=== PATIENT | male | born 1940 | race Caucasian/White ===

== ENCOUNTER → 2016-11-27 | Outpatient (CLI) | payer MEDICARE, OTHER ==
[2016-11-27 10:54] LABS: ABSOLUTE BASOPHILS # (AUTO) 0.1 10^3/uL (0.0-0.2); ABSOLUTE EOSINOPHILS # (AUTO) 0.1 10^3/uL (0.0-0.6); ABSOLUTE LYMPHOCYTES (AUTO) 1.2 10^3/uL (0.5-4.7); ABSOLUTE MONOCYTES (AUTO) 0.6 10^3/uL (0.1-1.4); ABSOLUTE NEUT (AUTO) 4.1 10^3/uL (1.7-8.2); BASOPHILS % (AUTO) 0.9 % (0-2); HEMATOCRIT 39.6 % (37.9-51.0); HEMOGLOBIN 13.6 g/dL (13.5-17.0); HGB HCT DIFFERENCE 1.2; LYMPHOCYTES % (AUTO) 19.9 % (13-45); MEAN CORPUSCULAR HEMOGLOBIN 33.2 pg (27.0-33.4); MEAN CORPUSCULAR HGB CONC 34.4 g/dL (32.0-36.0); MEAN CORPUSCULAR VOLUME 97 fl (80-97); MONOCYTES % (AUTO) 9.9 % (3-13); RED CELL DISTRIBUTION WIDTH 12.9 % (11.5-14.0); SEGMENTED NEUTROPHILS % (AUTO) 67.3 % (42-78); WHITE BLOOD COUNT 6.1 10^3/uL (4.0-10.5)
[2016-11-27 11:22] LABS: ALANINE AMINOTRANSFERASE 34 U/L (21-72); ALBUMIN 4.2 g/dL (3.5-5.0); ALKALINE PHOSPHATASE 60 U/L (38-126); ANION GAP 10 (5-19); ASPARTATE AMINO TRANSFERASE 27 U/L (17-59); BILIRUBIN,DIRECT 0.1 mg/dL (0.0-0.4); BILIRUBIN,TOTAL 0.8 mg/dL (0.2-1.3); BLOOD UREA NITROGEN 22 mg/dL (7-20); CALCIUM 9.5 mg/dL (8.4-10.2); CARBON DIOXIDE 29 mmol/L (22-30); CHLORIDE 104 mmol/L (98-107); CREATININE RESULT 1.13 mg/dL (0.52-1.25); GLUCOSE 137 mg/dL (75-110); POTASSIUM 5.2 mmol/L (3.6-5.0); SODIUM 143.1 mmol/L (137-145); TOTAL PROTEIN 6.3 g/dL (6.3-8.2)
[2016-11-27 11:24] LABS: C-REACTIVE PROTEIN < 5.0 mg/L (<10.0)
[2016-11-27 11:34] LABS: ERYTHROCYTE SEDIMENTATION RATE 11 mm/hr (0-20)
== END ==
LOC: RAD 10:00
PROVIDERS: ATTEND Nurse Practitioner Family
DX: E11.621 Type 2 diabetes mellitus with foot ulcer (principal)
CPT/HCPCS: 36415; 80053; 85025; 85652; 86140

== ENCOUNTER → 2016-12-10 | Outpatient (CLI) | payer MEDICARE, OTHER ==
--- NOTE | 2016-12-10 15:14 | XCELERA REPORT ---
[address] [address] Lower Extremity Arterial Evaluation Name: NATE HOBSON Age: 76 yrs Gender: Male : 1940 Patient Status: Outpatient Patient Location: Study Date: 12/10/2016 08:06 AM Procedure: A color flow and duplex scan of the lower extremity arteries was performed bilaterally with velocity and waveform anaylsis. Reason For Study: RIGHT FOOT ULCER Ordering Physician: BARRY MCARTHUR Performed By: Jt Gilmore Measurements and Calculations Right Left NEUROLOGY HOSPITALIST PSV 235.7 211.0 cm/sec Prox PFA PSV -213.3 -154.2 cm/sec Prox SFA PSV 137.1 -55.4 cm/sec Mid SFA PSV -137.1 -135.5 cm/sec Dist SFA PSV -104.1 -143.2 cm/sec Dist Pop A PSV 168.9 49.9 cm/sec Prox ADRIÁN PSV 25.1 41.2 cm/sec Mid ADRIÁN PSV 15.3 cm/sec Dist SAND MILL OPERATOR PSV 87.7 cm/sec Dist Linda A PSV 59.4 41.0 cm/sec Tim Pedis PSV -31.0 -66.7 cm/sec Right Side Arterial Evaluation Increased velocity and biphasic waveforms noted from the Common Femoral artery to the Popliteal artery. Monophasic in the Posterior Tibial artery. Occlusion in the Anterior Tibial artery with monophasic reconstitution. 20-49 % stenosis at the inflow With sequential disease. Ankle Brachial index was not obtainable, non compressible. Left Side Arterial Evaluation Increased velocity and biphasic waveforms noted from the Common Femoral artery to the Femoral artery. Monophasic in the Popliteal with fair velocity preservation. No flow in the Posterior Tibial artery. Occlusion in the Anterior Tibial artery with monophasic reconstitution. Left Popliteal to Dorsalis Pedis graft patent but monophasic 20-49 % stenosis at the inflow With sequential disease. Ankle Brachial index was not obtainable, non compressible. Interpretation Summary Severe hemodynamically significant lesions in the right lower extremity only, on duplex imaging, at rest. Severe hemodynamically significant lesions in the left lower extremity only, on duplex imaging, at rest. Patent though monophasic vein graft to the Dorsalis Pedis. : BARRY MCARTHUR > Doc Doyle
== END ==
LOC: SP 07:37
PROVIDERS: ATTEND Preventive Medicine Undersea and Hyperbaric Medicine
DX: L97.512 Non-pressure chronic ulcer of other part of right foot with fat layer exposed (principal)
CPT/HCPCS: 93925

== ENCOUNTER → 2016-12-31 | Outpatient (CLI) | payer MEDICARE, OTHER ==
--- NOTE | 2016-12-31 16:36 | RADIOLOGY REPORT (SQ) ---
EXAM DESCRIPTION: FOOT RIGHT COMPLETE COMPLETED DATE/TIME: 12/31/2016 1:26 pm REASON FOR STUDY: NON-PRS CHRONIC ULCER OTH PRT RIGHT FOOT W FAT LAYER EXPOSED (L97.512) L97.512 NO N-PRS CHRONIC ULCER OTH PRT RIGHT FOOT W FAT LAYER COMPARISON: Right foot films 11/27/2016, 10/28/2013, 05/27/2013 NUMBER OF VIEWS: Three views. TECHNIQUE: AP, lateral and oblique radiographic images acquired of the right foot. LIMITATIONS: None. 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 There is a bunionette deformity at the 5th toe. SOFT TISSUES: Along the plantar aspect of the right foot, a soft tissue ulcer is present containing r adiopaque ointment or debris. Ulcer is at the level of the 1st tarsometatarsal joint. OTHER: No other significant finding. 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 Plantar ulcer. No bony erosions or the demineralization or periostitis worrisome for active osteomyelitis. TECHNICAL DOCUMENTATION: JOB ID: [id number] [employer]- All Rights Reserved
== END ==
LOC: RAD 12:59
PROVIDERS: ATTEND Nurse Practitioner Family
DX: L97.512 Non-pressure chronic ulcer of other part of right foot with fat layer exposed (principal)

== ENCOUNTER → 2017-02-27 | Outpatient (CLI) | payer MEDICARE, OTHER ==
[2017-02-19 12:10] LABS: ANION GAP 7 (5-19); BLOOD UREA NITROGEN 26 mg/dL (7-20); CARBON DIOXIDE 23 mmol/L (22-30); CHLORIDE 107 mmol/L (98-107); CREATININE RESULT 1.52 mg/dL (0.52-1.25); GLUCOSE 133 mg/dL (75-110); POTASSIUM 5.7 mmol/L (3.6-5.0); SODIUM 136.9 mmol/L (137-145)
--- NOTE | 2017-02-27 09:36 | RADIOLOGY REPORT (SQ) ---
EXAM DESCRIPTION: CHEST PA/LAT COMPLETED DATE/TIME: 02/27/2017 9:22 am REASON FOR STUDY: ENCOUNTER FOR PRE PROCEDURAL EXAM COMPARISON: 05/27/2013 EXAM PARAMETERS: NUMBER OF VIEWS: two views TECHNIQUE: Digital Frontal and Lateral radiographic views of the chest acquired. RADIATION DOSE: NA LIMITATIONS: none FINDINGS: LUNGS AND PLEURA: Chronic interstitial changes. Calcified pleural plaque. No effusions. MEDIASTINUM AND HILAR STRUCTURES: No masses or contour abnormalities. HEART AND VASCULAR STRUCTURES: Heart size upper limits of normal, stable. No evidence for failure. BONES: No acute findings. HARDWARE: None in the chest. OTHER: No other significant finding. IMPRESSION: NO ACUTE RADIOGRAPHIC FINDING IN THE CHEST. TECHNICAL DOCUMENTATION: JOB ID: [id number] [employer]- All Rights Reserved
--- NOTE | 2017-02-27 12:25 | RADIOLOGY REPORT (SQ) ---
EXAM DESCRIPTION: MRI RT LOWER EXTREMITY WITHOUT COMPLETED DATE/TIME: 02/27/2017 10:30 am REASON FOR STUDY: NON PRESSURE CHRONIC ULCER RIGHT FOOT L97.514 NON-PRS CHRONIC ULCER OTH PRT RIGHT FOOT W NECROSIS COMPARISON: None. TECHNIQUE: Multiplanar imaging of the right forefoot to include T1 and inversion recovery weighted s equences. Images saved to PACs. CONTRAST TYPE AND DOSE: None. RENAL FUNCTION: Not applicable. LIMITATIONS: None. FINDINGS: BONE MARROW: Abnormal decreased T1 and increased T2 signal in the 1st metatarsal and proxi mal 1st phalanx. SOFT TISSUES: Diffuse swelling. Skin ulcer adjacent to head of 1st metatarsal. OTHER: No other significant finding. IMPRESSION: Osteomyelitis. TECHNICAL DOCUMENTATION: JOB ID: [id number] [employer]- All Rights Reserved
== END ==
LOC: RAD 02-19 07:49
PROVIDERS: ATTEND Physician Assistant Surgical
DX: Z01.818 Encounter for other preprocedural examination (principal); Z01.812 Encounter for preprocedural laboratory examination; L97.514 Non-pressure chronic ulcer of other part of right foot with necrosis of bone; I70.90 Unspecified atherosclerosis; I10 Essential (primary) hypertension
CPT/HCPCS: 36415; 71020; 80048

== ENCOUNTER → 2017-04-10 | Outpatient (CLI) | payer MEDICARE, OTHER ==
[2017-04-10 13:47] LABS: ABSOLUTE BASOPHILS # (AUTO) 0.1 10^3/uL (0.0-0.2); ABSOLUTE EOSINOPHILS # (AUTO) 0.2 10^3/uL (0.0-0.6); ABSOLUTE LYMPHOCYTES (AUTO) 1.7 10^3/uL (0.5-4.7); ABSOLUTE MONOCYTES (AUTO) 0.7 10^3/uL (0.1-1.4); ABSOLUTE NEUT (AUTO) 3.8 10^3/uL (1.7-8.2); BASOPHILS % (AUTO) 0.8 % (0-2); EOSINOPHILS % (AUTO) 3.5 % (0-6); HEMATOCRIT 37.8 % (37.9-51.0); HEMOGLOBIN 12.3 g/dL (13.5-17.0); HGB HCT DIFFERENCE -0.9; LYMPHOCYTES % (AUTO) 25.6 % (13-45); MEAN CORPUSCULAR HEMOGLOBIN 32.4 pg (27.0-33.4); MEAN CORPUSCULAR HGB CONC 32.6 g/dL (32.0-36.0); MEAN CORPUSCULAR VOLUME 99 fl (80-97); MONOCYTES % (AUTO) 10.9 % (3-13); RED BLOOD COUNT 3.81 10^6/uL (4.35-5.55); RED CELL DISTRIBUTION WIDTH 13.7 % (11.5-14.0); SEGMENTED NEUTROPHILS % (AUTO) 59.2 % (42-78); WHITE BLOOD COUNT 6.5 10^3/uL (4.0-10.5)
[2017-04-10 14:06] LABS: ALANINE AMINOTRANSFERASE 35 U/L (21-72); ALKALINE PHOSPHATASE 64 U/L (38-126); ANION GAP 12 (5-19); ASPARTATE AMINO TRANSFERASE 25 U/L (17-59); BILIRUBIN,DIRECT 0.3 mg/dL (0.0-0.4); BILIRUBIN,TOTAL 0.6 mg/dL (0.2-1.3); BLOOD UREA NITROGEN 25 mg/dL (7-20); CALCIUM 9.5 mg/dL (8.4-10.2); CARBON DIOXIDE 26 mmol/L (22-30); CHLORIDE 109 mmol/L (98-107); CREATININE RESULT 1.18 mg/dL (0.52-1.25); GLUCOSE 83 mg/dL (75-110); POTASSIUM 5.4 mmol/L (3.6-5.0); SODIUM 146.6 mmol/L (137-145); TOTAL PROTEIN 5.7 g/dL (6.3-8.2)
--- NOTE | 2017-04-10 14:17 | RADIOLOGY REPORT (SQ) ---
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 TECHNIQUE: AP, lateral and oblique radiographic images acquired of the right foot. LIMITATIONS: None. FINDINGS: MINERALIZATION: Normal. BONES: There is amputation of the 2nd, 3rd, and 4th digits from the level of the distal metatarsals. There appears to be fusion of the 1st metatarsal and 1st proximal phalanx. There is no bone destruc tion to suggest osteomyelitis. JOINTS: No effusions. SOFT TISSUES: No soft tissue swelling. No foreign body. OTHER: No other significant finding. IMPRESSION: Surgical changes. No evidence of osteomyelitis. TECHNICAL DOCUMENTATION: JOB ID: [id number] [employer]- All Rights Reserved
== END ==
LOC: RAD 12:47
PROVIDERS: ATTEND Preventive Medicine Undersea and Hyperbaric Medicine
DX: E11.621 Type 2 diabetes mellitus with foot ulcer (principal); L97.512 Non-pressure chronic ulcer of other part of right foot with fat layer exposed
CPT/HCPCS: 36415; 80053; 85025

== ENCOUNTER → 2017-09-01 | Outpatient (CLI) | payer MEDICARE, OTHER ==
[2017-09-01 15:39] LABS: ABSOLUTE BASOPHILS # (AUTO) 0.1 10^3/uL (0.0-0.2); ABSOLUTE EOSINOPHILS # (AUTO) 0.2 10^3/uL (0.0-0.6); ABSOLUTE LYMPHOCYTES (AUTO) 1.6 10^3/uL (0.5-4.7); ABSOLUTE MONOCYTES (AUTO) 0.7 10^3/uL (0.1-1.4); ABSOLUTE NEUT (AUTO) 4.5 10^3/uL (1.7-8.2); BASOPHILS % (AUTO) 0.8 % (0-2); EOSINOPHILS % (AUTO) 3.1 % (0-6); HEMATOCRIT 36.3 % (37.9-51.0); HEMOGLOBIN 12.4 g/dL (13.5-17.0); LYMPHOCYTES % (AUTO) 22.5 % (13-45); MEAN CORPUSCULAR HEMOGLOBIN 32.6 pg (27.0-33.4); MEAN CORPUSCULAR HGB CONC 34.2 g/dL (32.0-36.0); MEAN CORPUSCULAR VOLUME 95 fl (80-97); MONOCYTES % (AUTO) 9.9 % (3-13); PLATELET COUNT 188 10^3/uL (150-450); RED BLOOD COUNT 3.81 10^6/uL (4.35-5.55); RED CELL DISTRIBUTION WIDTH 13.4 % (11.5-14.0); SEGMENTED NEUTROPHILS % (AUTO) 63.7 % (42-78); TOTAL CELLS COUNTED % (AUTO) 100 %
[2017-09-01 16:00] LABS: ALANINE AMINOTRANSFERASE 32 U/L (21-72); ALBUMIN 3.9 g/dL (3.5-5.0); ALKALINE PHOSPHATASE 68 U/L (38-126); ANION GAP 7 (5-19); ASPARTATE AMINO TRANSFERASE 26 U/L (17-59); BILIRUBIN,DIRECT 0.3 mg/dL (0.0-0.4); BILIRUBIN,TOTAL 0.3 mg/dL (0.2-1.3); BLOOD UREA NITROGEN 25 mg/dL (7-20); CALCIUM 9.3 mg/dL (8.4-10.2); CARBON DIOXIDE 30 mmol/L (22-30); CHLORIDE 107 mmol/L (98-107); GLUCOSE 163 mg/dL (75-110); POTASSIUM 4.7 mmol/L (3.6-5.0); SODIUM 143.9 mmol/L (137-145); TOTAL PROTEIN 5.9 g/dL (6.3-8.2)
[2017-09-01 16:03] LABS: C-REACTIVE PROTEIN < 5.0 mg/L (<10.0)
[2017-09-01 16:22] LABS: ERYTHROCYTE SEDIMENTATION RATE 13 mm/hr (0-20)
--- NOTE | 2017-09-01 16:34 | RADIOLOGY REPORT (SQ) ---
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 NUMBER OF VIEWS: Three views. TECHNIQUE: AP, lateral and oblique radiographic images acquired of the right foot. LIMITATIONS: None. FINDINGS: MINERALIZATION: Normal. BONES: No change in prior amputation of distal right 2nd 3rd and 4th metatarsals and toes. No change in fusion of 1st metatarsophalangeal joint with hallux deformity JOINTS: No effusions. SOFT TISSUES: No soft tissue swelling. No foreign body. OTHER: Bandage on plantar aspect of right foot adjacent to 1st metatarsal. Vascular calcification no brooks IMPRESSION: No significant interval change. TECHNICAL DOCUMENTATION: JOB ID: [id number] [employer]- All Rights Reserved
== END ==
LOC: WC 14:48
PROVIDERS: ATTEND Preventive Medicine Undersea and Hyperbaric Medicine
DX: E11.621 Type 2 diabetes mellitus with foot ulcer (principal); L97.512 Non-pressure chronic ulcer of other part of right foot with fat layer exposed
CPT/HCPCS: 36415; 80053; 83036; 85025; 85652; 86140

== ENCOUNTER 2018-01-29 13:12 | Inpatient (IN) | payer MEDICARE, OTHER ==
[2018-01-29] MEDS ORDERED: ASPIRIN 81 MG TABLET, CHEWABLE PO ONE (13:27)
[2018-01-29] MEDS ORDERED: ADENOSINE INJ/PF 6 MG/2 ML SDV IV ONE ×2 (13:30→13:35)
[2018-01-29] MEDS ORDERED: RINGERS SOLUTION,LACTATED 1,000 ML IV ONE (13:30)
[2018-01-29 13:47] LABS: ABSOLUTE LYMPHOCYTES (AUTO) 0.7 10^3/uL (0.5-4.7); ABSOLUTE MONOCYTES (AUTO) 0.5 10^3/uL (0.1-1.4); ABSOLUTE NEUT (AUTO) 7.2 10^3/uL (1.7-8.2); BASOPHILS % (AUTO) 0.4 % (0-2); HEMATOCRIT 49.4 % (37.9-51.0); HEMOGLOBIN 16.7 g/dL (13.5-17.0); LYMPHOCYTES % (AUTO) 8.7 % (13-45); MEAN CORPUSCULAR HEMOGLOBIN 32.2 pg (27.0-33.4); MEAN CORPUSCULAR HGB CONC 33.7 g/dL (32.0-36.0); MEAN CORPUSCULAR VOLUME 95 fl (80-97); MONOCYTES % (AUTO) 5.6 % (3-13); PLATELET COUNT 207 10^3/uL (150-450); RED BLOOD COUNT 5.18 10^6/uL (4.35-5.55); RED CELL DISTRIBUTION WIDTH 13.7 % (11.5-14.0); SEGMENTED NEUTROPHILS % (AUTO) 85.3 % (42-78); TOTAL CELLS COUNTED % (AUTO) 100 %; WHITE BLOOD COUNT 8.4 10^3/uL (4.0-10.5)
--- NOTE | 2018-01-29 14:06 | ER Document Report ---
ED General - General Mode of Arrival: Ambulatory Information source: Patient TRAVEL OUTSIDE OF THE [place] IN LAST 30 DAYS: No <PADMINI LOPEZ - Last Filed: 01/29/18 14:30> <ROCKY HOUSE - Last Filed: 02/01/18 15:22> - General Stated Complaint: BLOOD SUGAR PROBLEMS Time Seen by Provider: 01/29/18 13:26 Notes: Patient is a 77 year old male that presents to the emergency department today with complaints of being found unresponsive by the . According to EMS when they arrived the patient had a BGL of 40. When given glucose the patient aroused and was nearly going to refuse transport however the patient's oxygen saturation was found to be in the upper 80s. The patient then began to develop a heart racing sensation. (PADMINI LOPEZ) - Related Data Allergies/Adverse Reactions: No Known Allergies Allergy (Unverified 12/14/10 12:52) Past Medical History - General Information source: Patient, [facility] Records - Social History Smoking Status: Never Smoker Cigarette use (# per day): No Frequency of alcohol use: None Drug Abuse: None Lives with: Family Family History: Reviewed & Not Pertinent - Past Medical History Cardiac Medical History: Reports: Hx Hypertension - micardis norvasc clonidine metoprolol Pulmonary Medical History: Musculoskeltal Medical History: Surgical Hx: Negative <PADMINI LOPEZ - Last Filed: 01/29/18 14:30> Review of Systems - Review of Systems Constitutional: See HPI, Other - unresponsive intially per EMS with BGL of 40 EENT: No symptoms reported Cardiovascular: See HPI, Heart racing. denies: Chest pain Respiratory: denies: Short of breath Gastrointestinal: No symptoms reported Genitourinary: No symptoms reported Male Genitourinary: No symptoms reported Musculoskeletal: No symptoms reported Skin: No symptoms reported Hematologic/Lymphatic: No symptoms reported Neurological/Psychological: No symptoms reported -: Yes All other systems reviewed and negative <PADMINI LOPEZ - Last Filed: 01/29/18 14:30> Physical Exam <PADMINI LOPEZ - Last Filed: 01/29/18 14:30> <ROCK[employer] HOUSE - Last Filed: 02/01/18 15:22> - Vital signs Vitals: Temp Resp Pulse Ox 98.8 F 27 H 92 01/29/18 13:29 01/29/18 13:29 01/29/18 13:29 - Notes Notes: Physical Exam: General: Alert. HEENT: Normocephalic. Atraumatic. PERRL. Extraocular movements intact. Oropharynx clear. Neck: Supple. C-collar removed, Non-tender. Respiratory: No respiratory distress. Clear and equal breath sounds bilaterally. Cardiovascular: Tachycardic, regular rhythm. Abdominal: Normal Inspection. Non-tender. No distension. Normal Bowel Sounds. Back: Non-tender. No deformity or step off. Extremities: Moves all four extremities. Upper extremities: Normal inspection. Normal ROM. Lower extremities: Stasis dermatitis to bilateral lower extremities, 1+ pitting edema bilaterally. Normal ROM. Neurological: Normal cognition. AAOx4. Normal speech. Psychological: Normal affect. Normal Mood. Skin: Warm. Dry. Ecchymosis over left chest and lower abdomen. Lower abdomen is from insulin injections and left chest is from running into a tree branch when cutting the lawn. (PADMINI LOPEZ) Course - Laboratory Result Diagrams: 01/29/18 13:29 01/29/18 13:29 <PADMINI LOPEZ - Last Filed: 01/29/18 14:30> - Laboratory Result Diagrams: 01/29/18 13:29 01/29/18 13:29 <ROCK[employer] HOUSE - Last Filed: 02/01/18 15:22> - Re-evaluation Re-evalutation: 01/29/18 15:09 Patient presents from EMS due to hypoglycemic episode found on the floor in his house blood glucose of 40. 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 Prior to leaving they noticed that the patient had heart rate in the 150s 160s was brought to the emergency department. In the emergency department patient's hypoxic 8991% with nonrebreather. He is alert and oriented 3 and denies any chest pain or short of breath. His at bedside states he has not had any recent fevers or illnesses. He was noted to be in supraventricular tachycardia which adenosine was administered. He did not respond to this and while nursing staff retrieving 12 mg patient spontaneously converted to sinus tachycardia at a rate approximately 110 115 bpm. He remained asymptomatic and his blood pressure remained stable during this time. Chest x-ray shows concern for possible right lower lobe infiltrate. Working through this point was patient aspirated after losing consciousness from hypoglycemic episode. Awaiting reading on CTA chest. Initial lab work shows mildly increased lactic acid no fevers patient has other labs are trending within his normal limits. 01/29/18 15:27 Upon reevaluation patient heart rate approximately 100 and distress on 15 L nonrebreather saturating at 98%. Was placed on 4 L nasal cannula maintaining oxygenation 94-96% this time will continue to monitor 01/29/18 15:[address] Monreal who will admit patient for further monitoring and oxygen supplementation. (ROCKY HOUSE) - Vital Signs Vital signs: Temp Pulse Resp BP Pulse Ox 97.9 F 132 H 18 156/57 H 94 01/30/18 12:22 01/30/18 12:22 01/30/18 12:22 01/30/18 12:22 01/30/18 12:22 - Laboratory Laboratory results interpreted by me: 01/29/18 01/29/18 01/29/18 13:29 13:29 13:29 Seg Neutrophils % 85.3 H Lymphocytes % 8.7 L Sodium 146.7 H Chloride 112 H Carbon Dioxide 20 L BUN 35 H Creatinine 1.34 H Est GFR (Non-Af Amer) 52 L Lactic Acid NT-Pro-B Natriuret Pep 1390 H 01/29/18 13:29 Seg Neutrophils % Lymphocytes % Sodium Chloride Carbon Dioxide BUN Creatinine Est GFR (Non-Af Amer) Lactic Acid 3.4 H NT-Pro-B Natriuret Pep - EKG Interpretation by Me Additional EKG results interpreted by me: 13:27 Rate 157, SVT, normal axis, non specific ST-T wave abnormalities 13:57 Rate 112, Sinus tachycardia, normal axis, non-specific ST-T wave abnormalities 01/29/18 15:44 15:41 Rate 103, Sinus tachycardia, normal axis, non-specific ST-T wave abnormalities ( ROCKY HOUSE) Discharge <PADMINI LOPEZ - Last Filed: 01/29/18 14:30> - Discharge Admitting Provider: Jocelin Unit Admitted: Telemetry <ROCKY HOUSE - Last Filed: 02/01/18 15:22> - Discharge Clinical Impression: Hypoxemia, Pneumonitis Aspiration into respiratory tract Qualifiers: Encounter type: initial encounter Qualified Code(s): T17.908A - Unspecified foreign body in respiratory tract, part unspecified causing other injury, initial encounter Condition: Good Disposition: ADMITTED INPATIENT Scribe Attestation: 02/01/18 15:22 I personally performed the services described documentation, reviewed and edited the documentation which was dictated to describe my presence, and it accurately records my words and actions. (ROCKY HOUSE) Scribe Documentation - Scribe Written by Scribe:: Bri Posey, 01/29/2018 1438 acting as scribe for :: Carlos <PADMINI LOPEZ - Last Filed: 01/29/18 14:30>
[2018-01-29 14:11] LABS: ALANINE AMINOTRANSFERASE 32 U/L (21-72); ALBUMIN 4.6 g/dL (3.5-5.0); ALKALINE PHOSPHATASE 71 U/L (38-126); ANION GAP 15 (5-19); ASPARTATE AMINO TRANSFERASE 29 U/L (17-59); BILIRUBIN,DIRECT 0.4 mg/dL (0.0-0.4); BILIRUBIN,TOTAL 0.8 mg/dL (0.2-1.3); BLOOD UREA NITROGEN 35 mg/dL (7-20); CALCIUM 9.6 mg/dL (8.4-10.2); CARBON DIOXIDE 20 mmol/L (22-30); CHLORIDE 112 mmol/L (98-107); GLUCOSE 93 mg/dL (75-110); POTASSIUM 4.2 mmol/L (3.6-5.0); SODIUM 146.7 mmol/L (137-145); TOTAL PROTEIN 7.2 g/dL (6.3-8.2)
[2018-01-29 14:19] LABS: NT PRO BNP 1390 pg/mL (<450)
[2018-01-29 14:41] LABS: TROPONIN I < 0.012 ng/mL
--- NOTE | 2018-01-29 14:51 | RADIOLOGY REPORT (SQ) ---
EXAM DESCRIPTION: CHEST SINGLE VIEW COMPLETED DATE/TIME: 01/29/2018 2:35 pm REASON FOR STUDY: hypoxia, tachycardia COMPARISON: 02/27/2017. EXAM PARAMETERS: NUMBER OF VIEWS: One view. TECHNIQUE: Single frontal radiographic view of the chest acquired. RADIATION DOSE: NA LIMITATIONS: None. FINDINGS: LUNGS AND PLEURA: Diffuse interstitial prominence. Faint densities in the lower lobes. N o large pleural effusion. No pneumothorax. MEDIASTINUM AND HILAR STRUCTURES: No masses. Contour normal. HEART AND VASCULAR STRUCTURES: Heart normal in size. Normal vasculature. BONES: No acute findings. HARDWARE: None in the chest. OTHER: No other significant finding. IMPRESSION: DIFFUSE INTERSTITIAL PROMINENCE, PROBABLY CHRONIC SCARRING ALTHOUGH THERE MAY BE A COMPO NENT OF INTERSTITIAL EDEMA. POSSIBLE DEVELOPING ATELECTASIS/INFILTRATE. TECHNICAL DOCUMENTATION: JOB ID: [id number] [employer]- All Rights Reserved Reading location - IP/workstation name: [email or web address]
--- NOTE | 2018-01-29 15:13 | RADIOLOGY REPORT (SQ) ---
EXAM DESCRIPTION: CT HEAD WITHOUT COMPLETED DATE/TIME: 01/29/2018 2:51 pm REASON FOR STUDY: fall, unresponsive COMPARISON: 12/25/2009 TECHNIQUE: Axial images acquired through the brain without intravenous contrast. Images reviewed wi th bone, brain and subdural windows. Additional sagittal and coronal reconstructions were generated. Images stored on PACS. All CT scanners at this facility use dose modulation, iterative reconstruction, and/or weight based d osing when appropriate to reduce radiation dose to as low as reasonably achievable (ALARA). [facility]: Dose Right [facility]: CareDose [facility]: Dose Right [facility]: Teradose 4D [facility]: Smart NowSpots RADIATION DOSE: CT Rad equipment meets quality standard of care and radiation dose reduction techniq ues were employed. CTDIvol: 53.2 mGy. DLP: 1124 mGy-cm. mGy. LIMITATIONS: None. FINDINGS: VENTRICLES: Prominent ventricles secondary to involutional atrophy. CEREBRUM: Cortical atrophy is present. No masses. No hemorrhage. No midline shift. No evidence fo r acute infarction. Areas of low density in the white matter most likely chronic small vessel ischemi c changes. CEREBELLUM: No masses. No hemorrhage. No alteration of density. No evidence for acute infarction. EXTRAAXIAL SPACES: No fluid collections. No masses. ORBITS AND GLOBE: No intra- or extraconal masses. Normal contour of globe without masses. CALVARIUM: No fracture. PARANASAL SINUSES: No fluid or mucosal thickening. SOFT TISSUES: No mass or hematoma. OTHER: No other significant finding. IMPRESSION: MICROVASCULAR ISCHEMIA AND GENERALIZED ATROPHY. NO ACUTE IMAGING FINDINGS IN THE BRAIN EVIDENCE OF ACUTE STROKE: NO. COMMENT: Quality ID # [id number]: Final reports with documentation of one or more dose reduction techniques (e.g., Automated exposure control, adjustment of the mA and/or kV according to patient size, use of iterative reconstruction technique) TECHNICAL DOCUMENTATION: JOB ID: [id number] [employer]- All Rights Reserved Reading location - IP/workstation name: [email or web address]
--- NOTE | 2018-01-29 15:18 | RADIOLOGY REPORT (SQ) ---
EXAM DESCRIPTION: CTA CHEST COMPLETED DATE/TIME: 01/29/2018 2:51 pm REASON FOR STUDY: hypoxia, tachycardia COMPARISON: Chest films 01/29/2018, 02/27/2017, 12/25/2009 TECHNIQUE: CT scan of the chest performed using helical scanning technique with dynamic intravenous contrast injection. Images reviewed with lung, soft tissue and bone windows. Reconstructed coronal and sagittal MPR images reviewed. Additional 3 dimensional post-processing performed to develop Maximal Intensity Projection images (RI P). All images stored on PACS. All CT scanners at this facility use dose modulation, iterative reconstruction, and/or weight based d osing when appropriate to reduce radiation dose to as low as reasonably achievable (ALARA). [facility]: Dose Right [facility]: CareDose [facility]: Dose Right [facility]: Teradose 4D [facility]: [employer] CONTRAST TYPE AND DOSE: contrast/concentration: Isovue 370.00 mg/ml; Total Contrast Delivered: 76.0 ml; Total Saline Delivered: 80.0 ml Contrast bolus optimized for the pulmonary arteries. Limited diagnostic quality bolus for the thorac ic aorta. RENAL FUNCTION: Creatinine 1.3 RADIATION DOSE: CT Rad equipment meets quality standard of care and radiation dose reduction techniq ues were employed. CTDIvol: 26.4 - 29.8 mGy. DLP: 1200 mGy-cm. . LIMITATIONS: None. FINDINGS: LUNGS AND PLEURA: Bilateral upper lobes demonstrate patchy ground-glass opacity with thick ened interlobular septa worrisome for pulmonary edema. There is more dense consolidation in the bila teral lower lobes, worrisome for pneumonia. No pleural effusions. No pneumothorax. Airways are patent. AORTA AND GREAT VESSELS: No aneurysm. No gross thoracic aortic dissection. . HEART: No pericardial effusion. Heavy coronary artery calcifications. PULMONARY ARTERIES: No emboli visualized in the main pulmonary arteries or the segmental branches. HILAR AND MEDIASTINAL STRUCTURES: No identified masses or abnormal nodes. HARDWARE: None in the chest. UPPER ABDOMEN: Multiple stones in the gallbladder without gallbladder wall thickening or pericholecys tic fluid. THYROID AND OTHER SOFT TISSUES: No masses. No adenopathy. BONES: Old sternal fracture. Mid thoracic compression deformities, chronic in appearance. 3D MIPS: Confirm above findings. OTHER: No other significant finding. IMPRESSION: No CT angio evidence of acute pulmonary emboli. Upper lobe ground-glass opacity with thickened interlobular septa likely alveolar and interstitial ed joshua. Bilateral lower lobe dense consolidation worrisome for pneumonia. COMMENT: Quality ID # [id number]: Final reports with documentation of one or more dose reduction techniques (e.g., Automated exposure control, adjustment of the mA and/or kV according to patient size, use of iterative reconstruction technique) TECHNICAL DOCUMENTATION: JOB ID: [id number] [employer]- All Rights Reserved Reading location - IP/workstation name: [email or web address]
[2018-01-29] MEDS ORDERED: DEXTROSE 40% GEL 15 GM TUBE PO PRN ×2 (16:17)
[2018-01-29] MEDS ORDERED: DEXTROSE 50%-WATER 25 GM/50 ML DISP.SYRIN IV PRN ×2 (16:17)
[2018-01-29] MEDS ORDERED: GLUCAGON,HUMAN RECOMB 1 MG INJ IM PRN (16:17)
--- NOTE | 2018-01-29 16:32 | PDOC H&P ---
History of Present Illness Admission Date/PCP: 01/29/18 16:08 BARRY MCARTHUR DPM History of Present Illness: NATE HOBSON is a 77 year old male who took his insulin this morning but did not make it to his breakfast and time and so he fell out on the floor. It is estimated he was down for about an hour and a half. His said she found him around 845 this morning and called EMS. She said she tried to give him some glucose. EMS got there and checked his sugar and it was 40. They gave him some D10 and were going to leave whenever they saw his pulse was around 160. While checking the rest of his vital signs of they saw that his SPO2 was also low. He was brought into the ER and he was given some adenosine. His heart rate did not respond. They were going to give him a second larger dose of adenosine when his rate suddenly came down to around 100. CTA of his chest was negative for clot, but he had some patchy opacities forming. He denied any chest pain or shortness of breath. He denied palpitations. He said he felt fine right up to the point he passed out. He had not been sick or feeling different prior to that. He now says he is feeling fine. He has not had any of his medications this morning, including his clonidine or his metoprolol. Past Medical History Cardiac Medical History: Reports: Hypertension - micardis norvasc clonidine metoprolol Denies: Myocardial Infarction Pulmonary Medical History: Denies: Asthma Neurological Medical History: Denies: Seizures Endocrine Medical History: Reports: Diabetes Mellitus Type 2 GI Medical History: Denies: Hepatitis, Hiatal Hernia Musculoskeltal Medical History: Hematology: Denies: Anemia, Sickle Cell Disease Past Surgical History Past Surgical History: Reports: Orthopedic Surgery - R toe amputation, Vascular Surgery - Had a stent placed in the left lower extremity Denies: Pacemaker Social History Information Source: Patient Lives with: Family Smoking Status: Never Smoker Family History Family History: Reviewed & Not Pertinent Parental Family History Reviewed: No - Noncontributory Children Family History Reviewed: No - Noncontributory Sibling(s) Family History Reviewed.: No - Noncontributory Medication/Allergy Allergies/Adverse Reactions: No Known Allergies Allergy (Unverified 12/14/10 12:52) Review of Systems All systems: reviewed and no additional remarkable complaints except as stated - 10 point review of systems was conducted with the patient was negative except as noted above in the HPI Physical Exam Vital Signs: Temp Pulse Resp BP Pulse Ox 98.8 F 29 H 178/164 H 93 01/29/18 13:29 01/29/18 15:31 01/29/18 15:31 01/29/18 15:31 General appearance: PRESENT: no acute distress, disheveled, well-developed, well -nourished Head exam: PRESENT: atraumatic, normocephalic Eye exam: PRESENT: conjunctiva pink, EOMI, PERRLA Ear exam: PRESENT: normal external ear exam Mouth exam: PRESENT: moist, neck supple, tongue midline Throat exam: ABSENT: post pharyngeal erythema, tonsillar erythema, tonsillar exudate, tonsillogmegaly Neck exam: PRESENT: full ROM. ABSENT: carotid bruit, JVD, lymphadenopathy, thyromegaly Respiratory exam: PRESENT: clear to auscultation paty. ABSENT: rales, rhonchi, wheezes Cardiovascular exam: PRESENT: RRR. ABSENT: diastolic murmur, rubs, systolic murmur Pulses: PRESENT: normal carotid pulses, normal radial pulses Vascular exam: PRESENT: normal capillary refill GI/Abdominal exam: PRESENT: normal bowel sounds, soft. ABSENT: distended, guarding, mass, organolmegaly, rebound, tenderness Rectal exam: PRESENT: deferred Extremities exam: PRESENT: other - He has had the 3 middle toes on the right foot removed surgically. Evidence of long-standing chronic venous insufficiency of lower extremities bilaterally.. ABSENT: pedal edema Musculoskeletal exam: PRESENT: normal inspection. ABSENT: deformity Neurological exam: PRESENT: alert, awake, oriented to person, oriented to place , oriented to time, CN II-XII grossly intact Skin exam: PRESENT: dry, warm Results Laboratory Results: Reviewed Impressions: Chest X-Ray 01/29/18 13:27 IMPRESSION: DIFFUSE INTERSTITIAL PROMINENCE, PROBABLY CHRONIC SCARRING ALTHOUGH THERE MAY BE A COMPONENT OF INTERSTITIAL EDEMA. POSSIBLE DEVELOPING ATELECTASIS/INFILTRATE. Chest/Abdomen CTA 01/29/18 13:28 IMPRESSION: No CT angio evidence of acute pulmonary emboli. Upper lobe ground-glass opacity with thickened interlobular septa likely alveolar and interstitial edema. Bilateral lower lobe dense consolidation worrisome for pneumonia. Head CT 01/29/18 13:28 IMPRESSION: MICROVASCULAR ISCHEMIA AND GENERALIZED ATROPHY. NO ACUTE IMAGING FINDINGS IN THE BRAIN EVIDENCE OF ACUTE STROKE: NO. Assessment & Plan - Diagnosis (1) Hypoglycemia due to insulin Is this a current diagnosis for this admission?: Yes Plan: Going to feed him and put him just on a sliding scale for right now. If his sugars remain elevated will put him back on some longer acting insulin. (2) SVT (supraventricular tachycardia) Is this a current diagnosis for this admission?: Yes Plan: Resolved. Due in part due to his acute metabolic issues, also partly due to the fact that he did not get his clonidine or his metoprolol this morning. Despite the recent warnings about being on both these at the same time, he has been on them for a while, I think missing them as had an effect on him manifested in some of the problem being seen this afternoon. I will give him a small dose of each medicine now and get him back on his usual schedule this evening. (3) Hypoxemia Is this a current diagnosis for this admission?: Yes Plan: This could have been triggered by development of some pulmonary edema, possibly due to aspiration or also possibly from an effective circulation due to SVT. Now we have seemingly got him settled down somewhat, I am going to watch him for now and wean his oxygen as tolerated. If he shows signs of infection we will empirically start him on some antibiotics. - Time Time Spent: 50 to 70 Minutes Medications reviewed and adjusted accordingly: Yes
[2018-01-29] MEDS ORDERED: METOPROLOL TARTRATE 25 MG TABLET PO ONE (17:15)
[2018-01-29] MEDS ORDERED: CLONIDINE HCL 0.1 MG TABLET PO ONE (17:15)
[2018-01-29] MEDS: INSULIN LISPRO 100 UNIT/ML 3 ML VIAL SUBCUT PRN ×2 (18:04→22:43)
[2018-01-29] MEDS ORDERED: CLONIDINE HCL 0.1 MG TABLET PO SCH (22:00)
[2018-01-29] MEDS ORDERED: METOPROLOL TARTRATE 25 MG TABLET PO SCH (22:00)
--- NOTE | 2018-01-30 00:15 | EKG REPORT ---
SEVERITY:- BORDERLINE ECG - SINUS TACHYCARDIA BORDERLINE T ABNORMALITIES, INFERIOR LEADS : Confirmed by: Kinjal De La Cruz MD 30-Jan-2018 00:14:42
--- NOTE | 2018-01-30 00:16 | EKG REPORT ---
SEVERITY:- ABNORMAL ECG - SUPRAVENTRICULAR TACHYCARDIA MULTIFORM VENTRICULAR PREMATURE COMPLEXES INCOMPLETE RIGHT BUNDLE BRANCH BLOCK ST DEPRESSION, PROBABLY RATE RELATED : Confirmed by: Kinjal De La Cruz MD 30-Jan-2018 00:16:18
--- NOTE | 2018-01-30 00:16 | EKG REPORT ---
SEVERITY:- DEFECTIVE ECG - SINUS RHYTHM DASELINE ARTIFACT.REPEAT EKG : Confirmed by: Kinjal De La Cruz MD 30-Jan-2018 00:15:51
[2018-01-30] MEDS ORDERED: FERROUS SULFATE 325 MG TABLET PO SCH (10:00)
[2018-01-30] MEDS ORDERED: ASPIRIN 81 MG TABLET, ENT COATED PO SCH (10:00)
[2018-01-30] MEDS ORDERED: AMLODIPINE BESYLATE 10 MG TABLET PO SCH (10:00)
[2018-01-30] MEDS ORDERED: ENOXAPARIN SODIUM INJ 40 MG/0.4 ML DISP.SYRIN SUBCUT SCH (10:00)
[2018-01-30] MEDS ORDERED: CLOPIDOGREL BISULFATE 75 MG TABLET PO SCH (10:00)
[2018-01-30] MEDS ORDERED: METOPROLOL TARTRATE 50 MG TABLET PO SCH (10:00)
[2018-01-30] MEDS: INSULIN LISPRO 100 UNIT/ML 3 ML VIAL SUBCUT PRN (11:39)
[2018-01-30 12:34] VITALS: BP 136/63
--- NOTE | 2018-01-30 17:18 | PDOC DISCHARGE SUMMARY ---
General - Admit/Disc Date/PCP Admission Date/Primary Care Provider: 01/29/18 16:08 NADYA GUERRA MD Discharge Date: 01/30/18 - Discharge Diagnosis (1) Hypoglycemia due to insulin Is this a current diagnosis for this admission?: Yes Summary: He took his insulin and did not make it to breakfast and time and subsequently passed out. His found him about an hour and a half later. We put him on his usual insulin and fed him his usual diet and he is done fine. (2) SVT (supraventricular tachycardia) Is this a current diagnosis for this admission?: Yes Summary: He was in SVT when he first came in and it did not respond to adenosine. It resolved spontaneously. We put him back on his usual medications that he is on at home and his heart rate is now in a sinus rhythm. (3) Hypoxemia Is this a current diagnosis for this admission?: Yes Summary: It is thought that he may have developed a little bit of pulmonary edema due to the SVT with an ineffective circulation pattern when he first came in. We have not given him Lasix. His breathing has been comfortable. He has been ambulating independently. We put him on room air and his pulse oximetry was 95% . - Additional Information Resuscitation Status: Full Code Discharge Diet: Other (Comments) Discharge Activity: Activity As Tolerated Home Medications: Amlodipine Besylate [Norvasc 10 mg Tablet] 10 mg PO DAILY 01/29/18 Aspirin [Aspirin EC] 81 mg PO DAILY 01/29/18 Clonidine HCl [Kapvay] 0.1 mg PO Q12 01/29/18 Clopidogrel Bisulfate [Plavix 75 mg Tablet] 75 mg PO DAILY 01/29/18 Ferrous Sulfate [Albafort] 325 mg PO DAILY 01/29/18 Gabapentin [Neurontin 300 mg Capsule] 300 mg PO QHS 01/29/18 Insulin Aspart [Novolog Flexpen] 0 unit SUBCUT .SLD SCALE 01/29/18 Insulin Glargine,Hum.rec.anlog [Lantus Solostar] 28 unit SQ QAM 01/29/18 Metoprolol Tartrate [Lopressor 50 mg Tablet] 50 mg PO Q12H 01/29/18 Pravastatin Sodium [Pravachol] 20 mg PO QHS 01/29/18 Pregabalin [Lyrica 75 mg Capsule] 75 mg PO Q12 01/29/18 Pyridoxine HCl (Vitamin B6) [Pyridoxine HCl] 50 mg PO QAM 01/29/18 Telmisartan/Hydrochlorothiazid [Telmisartan-Hctz 80-12.5 mg Tb] 1 each PO DAILY 01/29/18 Welchol 3.75gm Packet 1 packet PO DAILY 01/29/18 History of Present Illness History of Present Illness: NATE HOBSON is a 77 year old male who took his insulin this morning but did not make it to his breakfast and time and so he fell out on the floor. It is estimated he was down for about an hour and a half. His said she found him around 845 this morning and called EMS. She said she tried to give him some glucose. EMS got there and checked his sugar and it was 40. They gave him some D10 and were going to leave whenever they saw his pulse was around 160. While checking the rest of his vital signs of they saw that his SPO2 was also low. He was brought into the ER and he was given some adenosine. His heart rate did not respond. They were going to give him a second larger dose of adenosine when his rate suddenly came down to around 100. CTA of his chest was negative for clot, but he had some patchy opacities forming. He denied any chest pain or shortness of breath. He denied palpitations. He said he felt fine right up to the point he passed out. He had not been sick or feeling different prior to that. He now says he is feeling fine. He has not had any of his medications this morning, including his clonidine or his metoprolol. Hospital Course Hospital Course: We put him back on his usual medications and watched him overnight he has done fine. His heart rate is been in a sinus rhythm on the monitor. His pulse oximetry was in the mid 90s on room air at time of discharge. He is going to be all of his usual medications. His labs and examination were reassuring and he was discharged today in good condition. Physical Exam Vital Signs: Temp Pulse Resp BP Pulse Ox 97.9 F 132 H 18 156/57 H 94 01/30/18 12:22 01/30/18 12:22 01/30/18 12:22 01/30/18 12:22 01/30/18 12:22 Intake & Output 01/29/18 01/30/1818 06:59 06:59 06:59 Intake Total 200 Balance 200 Weight 88.4 kg General appearance: PRESENT: no acute distress, well-developed, well-nourished Respiratory exam: PRESENT: clear to auscultation paty. ABSENT: rales, rhonchi, wheezes Cardiovascular exam: PRESENT: RRR. ABSENT: diastolic murmur, rubs, systolic murmur Vascular exam: PRESENT: normal capillary refill GI/Abdominal exam: PRESENT: normal bowel sounds, soft. ABSENT: distended, guarding, mass, organolmegaly, rebound, tenderness Extremities exam: ABSENT: clubbing, pedal edema Musculoskeletal exam: PRESENT: ambulatory, normal inspection. ABSENT: deformity Neurological exam: PRESENT: alert, awake, oriented to person, oriented to place , oriented to time Results Laboratory Results: 01/29/18 01/29/18 01/30/18 17:38 22:07 04:40 Troponin I 0.020 0.030 0.030 Impressions: Chest X-Ray 01/29/18 13:27 IMPRESSION: DIFFUSE INTERSTITIAL PROMINENCE, PROBABLY CHRONIC SCARRING ALTHOUGH THERE MAY BE A COMPONENT OF INTERSTITIAL EDEMA. POSSIBLE DEVELOPING ATELECTASIS/INFILTRATE. Chest/Abdomen CTA 01/29/18 13:28 IMPRESSION: No CT angio evidence of acute pulmonary emboli. Upper lobe ground-glass opacity with thickened interlobular septa likely alveolar and interstitial edema. Bilateral lower lobe dense consolidation worrisome for pneumonia. Head CT 01/29/18 13:28 IMPRESSION: MICROVASCULAR ISCHEMIA AND GENERALIZED ATROPHY. NO ACUTE IMAGING FINDINGS IN THE BRAIN EVIDENCE OF ACUTE STROKE: NO. Qualifiers - * PATIENT BEING DISCHARGED WITH ANY OF THE FOLLOWING DIAGNOSIS: No
[2018-01-30] MEDS ORDERED: GABAPENTIN 300 MG CAPSULE PO SCH (22:00)
== END 2018-01-30 13:00 | disposition home or self-care (01) | DRG 189 ==
LOC: ER 13:12 → EH 16:08 → 5 21:28
PROVIDERS: ADMIT Family Medicine; ATTEND Family Medicine
DX: J96.01 Acute respiratory failure with hypoxia (principal); G93.41 Metabolic encephalopathy; J18.9 Pneumonia, unspecified organism; I47.1 Supraventricular tachycardia; E11.649 Type 2 diabetes mellitus with hypoglycemia without coma; W19.XXXA Unspecified fall, initial encounter; I10 Essential (primary) hypertension; E11.51 Type 2 diabetes mellitus with diabetic peripheral angiopathy without gangrene; Z79.4 Long term (current) use of insulin; Z79.899 Other long term (current) drug therapy; Z89.421 Acquired absence of other right toe(s); Z99.81 Dependence on supplemental oxygen
CPT/HCPCS: 36415; 70450; 71045; 71275; 80053; 82962; 83605; 83735; 83880; 84443; 84484; 85025; 87040; 93005; 93010; 96361; 96374; 99285; J0153; J1650; J1815; J7120

== ENCOUNTER 2018-06-19 11:07 | Emergency (ER) | payer MEDICARE, OTHER ==
[2018-06-19] MEDS ORDERED: LIDOCAINE 1% INJ-PF (10 MG/ML) 30 ML SDV INJ ONE (11:49)
[2018-06-19] MEDS ORDERED: DIPH/PERTUSS(ACELL)/TETANUS VAC/PF 0.5 ML SYR (>=10YO) IM ONE (12:41)
--- NOTE | 2018-06-19 12:50 | ER Document Report ---
ED General - General Chief Complaint: Arm Injury Stated Complaint: FALL/ARM INJURY Time Seen by Provider: 06/19/18 11:25 Mode of Arrival: Ambulatory Information source: Patient Notes: Patient is a 77-year-old male who presents emergency department chief complaint of laceration. Patient has an 8 cm laceration/skin tear to his left forearm. Patient reports that he was lifting a piece of concrete when he hit his arm onto the concrete. He denies falling or striking his head. He states that he is on 2 different blood thinners. He also states he is prone to bad skin tears. Bleeding is controlled at this time. TRAVEL OUTSIDE OF THE [place] IN LAST 30 DAYS: No - Related Data Allergies/Adverse Reactions: No Known Allergies Allergy (Unverified 12/14/10 12:52) Past Medical History - General Information source: Patient - Social History Smoking Status: Never Smoker Frequency of alcohol use: None Drug Abuse: None Family History: Reviewed & Not Pertinent - Past Medical History Cardiac Medical History: Reports: Hx Hypertension - micardis norvasc clonidine metoprolol Denies: Hx Heart Attack Pulmonary Medical History: Denies: Hx Asthma Neurological Medical History: Denies: Hx Cerebrovascular Accident, Hx Seizures Endocrine Medical History: Reports: Hx Diabetes Mellitus Type 2 Renal/ Medical History: Denies: Hx Peritoneal Dialysis GI Medical History: Denies: Hx Hepatitis, Hx Hiatal Hernia, Hx Ulcer Musculoskeletal Medical History: Psychiatric Medical History: Denies: Hx Depression Infectious Medical History: Denies: Hx Hepatitis Past Surgical History: Reports: Hx Orthopedic Surgery - R toe amputation, Hx Vascular Surgery - Had a stent placed in the left lower extremity. Denies: Hx Open Heart Surgery, Hx Pacemaker Review of Systems - Review of Systems Skin: See HPI -: Yes All other systems reviewed and negative Physical Exam - Notes Notes: PHYSICAL EXAMINATION: GENERAL: Well-appearing, well-nourished and in no acute distress. HEAD: Atraumatic, normocephalic. EYES: Pupils equal round extraocular movements intact, conjunctiva are normal. ENT: Nares patent NECK: Normal range of motion LUNGS: No respiratory distress Musculoskeletal: Normal range of motion NEUROLOGICAL: Normal speech, normal gait. PSYCH: Normal mood, normal affect. SKIN: Warm, Dry, normal turgor, no rashes or lesions noted. 8 cm laceration to left forearm, approximates well, bleeding controlled. Skin tear left elbow. Course - Re-evaluation Re-evalutation: Laceration repaired under sterile technique, see procedure note. Patient tolerated well. Skin tear to the left elbow dressed with Xeroform dressing. Patients given instructions on wound care and verbalizes understanding of same. Procedures - Laceration/Wound Repair Left forearm Wound length (cm): 8 Wound's Depth, Shape: Superficial, Irregular Laceration pre-procedure: Sterile PPE donned Anesthetic type: 1% Lidocaine Wound explored: Clean Suture Size/Type: 5:0, Ethilon Number of Sutures: 16 Layer Closure?: No Post-procedure wound care: Sterile dressing applied Post-procedure NV exam normal: Yes Complications: No Discharge - Discharge Clinical Impression: Laceration Condition: Stable Disposition: HOME, SELF-CARE Additional Instructions: Laceration Care Your laceration has been sutured to keep the skin edges aligned during healing. The time of suture removal depends on the nature and location of your cut. Please follow the care instructions the doctor has outlined for you and return for further care, according to the schedule you've been given. Keep the wound and dressing clean. Unless you were told otherwise, you may shower daily, blotting the wound dry with a clean, unused towel. At other times, If the dressing gets wet or blood soaked, remove it and blot the wound dry, then reapply a new dressing. Unless you were instructed otherwise, dressings should be changed at least daily. If any signs of infection occur (swelling, redness, increasing tenderness, red streaks, tender lumps in the armpit or groin above the laceration, or fever) , see the doctor immediately. Please return to the emergency department or your primary care provider in 10 days for suture removal. Leave the dressing in place to the elbow area for 24 hours. After that you may need to change the dressing twice daily by applying a thin layer of bacitracin ointment to the area and placing a nonstick pad over it. Please return earlier if you develop any signs of infection such as increased redness, swelling, foul-smelling drainage or fever. 10 days Prescriptions: Cephalexin [Cephalexin 500 MG Tablet] 1 tab PO QID #28 tablet Referrals: NADYA GUERRA MD [Primary Care Provider] - Follow up as needed
== END 2018-06-19 14:01 | disposition home or self-care (01) ==
LOC: ER 11:07
DX: S51.812A Laceration without foreign body of left forearm, initial encounter (principal); W22.8XXA Striking against or struck by other objects, initial encounter; Y93.89 Activity, other specified; I10 Essential (primary) hypertension; E11.9 Type 2 diabetes mellitus without complications; Z79.01 Long term (current) use of anticoagulants
CPT/HCPCS: 99283; 90471; 90715; 12004; J3490

== ENCOUNTER 2018-06-20 12:18 | Emergency (ER) | payer MEDICARE ==
[2018-06-20] MEDS ORDERED: LIDOCAINE 1%/EPINEPHRINE INJ 20 ML VIAL INJ ONE (12:36)
[2018-06-20] MEDS ORDERED: TRANEXAMIC ACID INJ/PF 1,000 MG/10 ML SDV IV ONE (12:37)
--- NOTE | 2018-06-20 12:41 | ER Document Report ---
ED General - General Chief Complaint: Post Surgical Bleeding Stated Complaint: REVISIT/LACERATION TO LEFT ARM Time Seen by Provider: 06/20/18 12:35 Notes: 77-year-old male on Eliquis and Plavix to the emergency department for continuing bleeding from the left hand laceration. Patient was seen yesterday and sutured. Has soaked through multiple stacks of dressings. Cannot get the bleeding to stop. Did take his blood thinners today again. TRAVEL OUTSIDE OF THE [place] IN LAST 30 DAYS: No - HPI Onset: Yesterday Onset/Duration: Gradual Quality of pain: No pain Severity: Mild Pain Level: 0 - Related Data Allergies/Adverse Reactions: No Known Allergies Allergy (Verified 06/20/18 12:34) Past Medical History - General Information source: Patient, Relative, [facility], [facility] Records - Social History Smoking Status: Never Smoker Chew tobacco use (# tins/day): No Frequency of alcohol use: None Drug Abuse: None Lives with: Spouse/Significant other Family History: Reviewed & Not Pertinent Patient has suicidal ideation: No Patient has homicidal ideation: No - Past Medical History Cardiac Medical History: Reports: Hx Hypertension - micardis norvasc clonidine metoprolol Denies: Hx Heart Attack Pulmonary Medical History: Denies: Hx Asthma Neurological Medical History: Denies: Hx Cerebrovascular Accident, Hx Seizures Endocrine Medical History: Reports: Hx Diabetes Mellitus Type 2 Renal/ Medical History: Denies: Hx Peritoneal Dialysis GI Medical History: Denies: Hx Hepatitis, Hx Hiatal Hernia, Hx Ulcer Musculoskeletal Medical History: Psychiatric Medical History: Denies: Hx Depression Infectious Medical History: Denies: Hx Hepatitis Past Surgical History: Reports: Hx Orthopedic Surgery - R toe amputation, Hx Vascular Surgery - Had a stent placed in the left lower extremity. Denies: Hx Open Heart Surgery, Hx Pacemaker Review of Systems - Review of Systems Constitutional: denies: Fever, Malaise, Weakness EENT: denies: Double vision, Vertigo Cardiovascular: denies: Chest pain, Palpitations, Heart racing Respiratory: denies: Cough, Hurts to breathe, Short of breath Gastrointestinal: denies: Nausea, Vomiting Musculoskeletal: See HPI. denies: Joint pain, Deformity Skin: Other - Laceration to the left hand which continues to bleed. denies: Dryness Hematologic/Lymphatic: Easy bleeding, Easy bruising. denies: Blood clots Physical Exam - Vital signs Vitals: Temp Pulse Resp BP Pulse Ox 97.7 F 119 H 20 99/61 L 100 06/20/18 12:25 06/20/18 12:25 06/20/18 12:25 06/20/18 12:25 06/20/18 12:25 Interpretation: Normal - General General appearance: Appears well, Alert - HEENT Head: Normocephalic Eyes: Normal Conjunctiva: Normal - Respiratory Respiratory status: No respiratory distress Chest status: Nontender Breath sounds: Normal Chest palpation: Normal - Cardiovascular Heart sounds: Normal auscultation Murmur: No - Back Back: Normal, Nontender - Extremities General upper extremity: Other - Laceration present on the left hand. Measuring approximately 8 cm in length. Wraps around the hyperthenar eminence area. Radius and ulnar pulses are intact to the affected upper extremity General lower extremity: No: Jocelyn's sign - Neurological Neuro grossly intact: Yes Cognition: Normal Orientation: AAOx4 Luz Maria Coma Scale Eye Opening: Spontaneous Luz Maria Coma Scale Verbal: Oriented [place] Coma Scale Motor: Obeys Commands [place] Coma Scale Total: 15 Speech: Normal Motor strength normal: LUE, RUE, LLE, RLE Sensory: Normal - Skin Skin Temperature: Warm Skin Moisture: Dry Skin Color: Other - Is approximate 8 cm curvilinear laceration that has been repaired. There is significant amount of blood oozing from the repair site. Dressings are saturated. Course - Re-evaluation Re-evalutation: 06/20/18 13:49 Patient was consented for hemostatic procedure. After consent was obtained the area was prepped with alcohol. A 27-gauge needle was used to go underneath the skin at previous laceration site and underneath the sutures. A mixture of trans -eccentric acid and lidocaine with epinephrine was prepared. Approximately 10 mL's were injected along the laceration site for local infiltration. A pressing dressing was applied. No complications. Repeat evaluation revealed 85 % reduction and hemorrhaging. Patient's neurovascular status intact. Sensation intact. An additional 10 mL's of solution mixture as described above was applied to 3 cotton balls and placed over the top of the incision site/ laceration repair site. A repeat pressure dressing was applied. Reevaluated after 30 minutes. 06/20/18 15:03 Bleeding is now controlled. Will DC at this time. 11/17/18 15:03 - Vital Signs Vital signs: Temp Pulse Resp BP Pulse Ox 97.7 F 119 H 20 99/61 L 100 06/20/18 12:25 06/20/18 12:25 06/20/18 12:25 06/20/18 12:25 06/20/18 12:25 Discharge - Discharge Clinical Impression: Postoperative hemorrhage of skin Qualifiers: Procedure type: dermatologic Qualified Code(s): L76.21 - Postprocedural hemorrhage of skin and subcutaneous tissue following a dermatologic procedure Condition: Good Disposition: HOME, SELF-CARE Instructions: Hand Laceration ([facility]) Additional Instructions: Continue to apply moderate pressure dressing removing every 30 minutes to assess whether or not bleeding is better. In the event that bleeding continues to reapply the pressure dressing. If bleeding is unable to be controlled with pressure then please return immediately for repeat evaluation and treatment. Follow-up with your regular doctor for suture removal. Do not take your Eliquis tonight. Resume Eliquis tomorrow if the bleeding is controlled. If bleeding persists overnight and remains in the morning then return to the emergency department for repeat evaluation. Referrals: NADYA GUERRA MD [Primary Care Provider] - Follow up as needed
[2018-06-20 15:28] VITALS: BP 105/73
== END 2018-06-20 15:28 | disposition home or self-care (01) ==
LOC: ER 12:18
DX: L76.21 Postprocedural hemorrhage of skin and subcutaneous tissue following a dermatologic procedure (principal); I10 Essential (primary) hypertension; E11.9 Type 2 diabetes mellitus without complications; Z79.02 Long term (current) use of antithrombotics/antiplatelets
CPT/HCPCS: 35860; J3490 ×2

== ENCOUNTER 2018-06-29 07:50 | Emergency (ER) | payer MEDICARE, OTHER ==
[2018-06-29 07:56] VITALS: BP 113/67
--- NOTE | 2018-06-29 08:40 | ER Document Report ---
HPI - HPI Time Seen by Provider: 06/29/18 08:26 Pain Level: Denies Notes: Patient is a 77-year-old male with a history of diabetes who presents to the ED for suture removal status post laceration/injury 10 days ago to his left hand. Patient had 16 sutures placed. Patient did return one day after because of uncontrolled bleeding which was then controlled with TXA and lidocaine with epinephrine. Patient states that he has had no complications since then. He has finished his antibiotics couple days ago. He has no associated pain, purulence, or red streaks. No other concerns or complaints. Denies any headache, fever, URI, sore throat, chest pain, palpitations, syncope, cough, shortness of breath, wheeze, dyspnea, abdominal pain, nausea/vomiting/diarrhea, urinary retention, dysuria, hematuria, numbness/tingling, muscle paralysis/ weakness, or rash. - ROS Systems Reviewed and Negative: Yes All other systems reviewed and negative - REPRODUCTIVE Reproductive: DENIES: : Past Medical History - Social History Smoking Status: Never Smoker Family History: Reviewed & Not Pertinent - Past Medical History Cardiac Medical History: Reports: Hx Hypertension - micardis norvasc clonidine metoprolol Denies: Hx Heart Attack Pulmonary Medical History: Denies: Hx Asthma Neurological Medical History: Denies: Hx Cerebrovascular Accident, Hx Seizures Endocrine Medical History: Reports: Hx Diabetes Mellitus Type 2 Renal/ Medical History: Denies: Hx Peritoneal Dialysis GI Medical History: Denies: Hx Hepatitis, Hx Hiatal Hernia, Hx Ulcer Musculoskeletal Medical History: Psychiatric Medical History: Denies: Hx Depression Infectious Medical History: Denies: Hx Hepatitis Past Surgical History: Reports: Hx Orthopedic Surgery - R toe amputation, Hx Vascular Surgery - Had a stent placed in the left lower extremity. Denies: Hx Open Heart Surgery, Hx Pacemaker Vertical Provider Document - CONSTITUTIONAL Agree With Documented VS: No - HR 90 during exam Notes: PHYSICAL EXAMINATION: GENERAL: Well-appearing, well-nourished and in no acute distress. LUNGS: Breath sounds clear to auscultation bilaterally and equal. No wheezes rales or rhonchi. HEART: Regular rate and rhythm without murmurs, rubs, gallops. Musculoskeletal: left hand: FROM to passive/active. Strength 5+/5. N/V intact. Extremities: No cyanosis, clubbing, or edema b/l. Peripheral pulses 2+. Capillary refill less than 3 seconds. NEUROLOGICAL: Cranial nerves grossly intact. Normal speech, normal gait. Normal sensory, motor exams PSYCH: Normal mood, normal affect. SKIN: Left hand: sutures intact. No significant erythema, warmth, or any purulence. No streaks. Non-tender. The wound near the superificial edge did not entirely close, but no significant dehiscence is noted. - INFECTION CONTROL TRAVEL OUTSIDE OF THE [place] IN LAST 30 DAYS: No Course - Re-evaluation Re-evalutation: 06/29/18 08:38 Patient is an afebrile, well-hydrated 77-year-old male who presents to the ED for suture removal. Vitals are acceptable. There is no evidence of infection or complete wound dehiscence. There is evidence that the superficial edge of the wound did not heal completely shut, most likely could be due to his diabetes with prolonged healing. Sutures were removed successfully without any complications and Steri-Strips were then applied. I will send him home with another 4 days of an antibiotic as precautionary. Recheck with your PCM in 2-3 days. Return to the ED with any worsening/concerning symptoms as reviewed. Patient is in agreement. - Vital Signs Vital signs: Temp Pulse Resp BP Pulse Ox 97.8 F 122 H 20 113/67 100 06/29/18 07:54 06/29/18 07:54 06/29/18 07:54 06/29/18 07:54 06/29/18 07:54 Discharge - Discharge Clinical Impression: Visit for suture removal Condition: Stable Disposition: HOME, SELF-CARE Instructions: Suture Removal Additional Instructions: Leave steri-strips in place for 3-5 more days or until directed otherwise by PCM. Keep the skin clean Wash with soap and water Tylenol if needed Take medication as directed Monitor for any worsening symptoms Recheck with your PCM in 2-3 days Return to the ED with any worsening symptoms and/or development of fever, headache, chest pain, palpitations, syncope, shortness of breath, trouble breathing, abdominal pain, n/v/d, abscess, purulent discharge, red streaks, worsening swelling, or other worsening symptoms that are concerning to you. Prescriptions: Cephalexin Monohydrate [Keflex 500 mg Capsule] 500 mg PO TID #12 capsule Referrals: NADYA GUERRA MD [Primary Care Provider] - 07/02/18
== END 2018-06-29 08:45 | disposition home or self-care (01) ==
LOC: ER 07:50
DX: S61.412D Laceration without foreign body of left hand, subsequent encounter (principal); W19.XXXD Unspecified fall, subsequent encounter; E11.9 Type 2 diabetes mellitus without complications